=== PATIENT | male | born 2000 | race Caucasian/White ===

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

== ENCOUNTER 2022-10-14 22:28 | Observation (INO) | payer BC, OTHER ==
[2022-10-14 22:53] VITALS: TEMP 98.1
[2022-10-15] MEDS ORDERED: SODIUM CHLORIDE 0.9% 1,000 ML IV STA (00:11)
[2022-10-15 00:22] LABS: Basophils # (A) 0.1 k/uL (0-0.2); Basophils % (A) 1 %; Eosinophils # (A) 0.1 k/uL (0-0.7); Eosinophils % (A) 2 %; HCT 40.2 % (39.0-53.0); HGB 13.2 gm/dL (13.0-17.5); Lymphocytes # (A) 2.2 k/uL (1.0-4.8); Lymphocytes % (A) 31 %; MCH 27.9 pg (25.0-35.0); MCHC 32.9 g/dL (31.0-37.0); MCV 84.7 fL (80.0-100.0); Mean Platelet Volume 7.8; Monocytes # (A) 0.5 k/uL (0-1.0); Monocytes % (A) 8 %; Neutrophils # (A) 3.9 k/uL (1.3-7.7); Neutrophils % (A) 57 %; Platelet Count 259 k/uL (150-450); RBC 4.75 m/uL (4.30-5.90); RDW 13.7 % (11.5-15.5); WBC 6.9 k/uL (3.8-10.6)
[2022-10-15 00:28] LABS: ALT 23 U/L (4-49); AST 35 U/L (17-59); African American GFR (CKD) >90 (>60 ml/min/1.73 sqM); Albumin 4.3 g/dL (3.5-5.0); Alkaline Phosphatase 46 U/L (38-126); Anion Gap 6 mmol/L; Blood Urea Nitrogen 13 mg/dL (9-20); Calcium 9.2 mg/dL (8.4-10.2); Carbon Dioxide 28 mmol/L (22-30); Chloride 103 mmol/L (98-107); Glucose 92 mg/dL (74-99); Non-African American GFR(CKD) >90 (>60 ml/min/1.73 sqM); Potassium 4.6 mmol/L (3.5-5.1); Sodium 137 mmol/L (137-145); Total Bilirubin 0.5 mg/dL (0.2-1.3)
--- NOTE | 2022-10-15 00:28 | ED ---
Dizziness HPI - General Chief Complaint: Dizziness Stated Complaint: Dizzy,Tingles in hands and feet Time Seen by Provider: 10/14/22 23:26 Source: patient, RN notes reviewed Mode of arrival: ambulatory Limitations: no limitations - History of Present Illness Initial Comments: Patient is a pleasant 22-year-old male presenting to the emergency ro with concerns of dizziness with one syncopal episode earlier today along with persistent nausea, vomiting and diarrhea all ongoing within the last 24 hours. He also is complaining of generalized malaise, weakness and difficulty climbing upstairs and intermittent paresthesia to his upper extremities. He denies any numbness or tingling to his extremities at this time. He denies any lower extremity numbness or tingling. He was seen by his primary care provider earlier today regarding his symptoms and was referred to cardiology for further evaluation of a prolonged QT. He denies any history of cardiovascular problems including previous bradycardia and he is not taking any medications on a regular basis. He denies any abdominal pain, chest pain, blurred or double vision, dizziness when lying, headache, fevers or chills. He denies any significant past medical history. His mother reports that his grandfather did have a pacemaker placed when he was older but deny any cardiovascular problems at a young age that she or the patient is aware of. - Related Data Home Medications Medication Instructions Recorded Confirmed Ibuprofen [Motrin Ib] 400 mg PO Q6H PRN 11/28/18 11/28/18 Previous Rx's Medication Instructions Recorded methylPREDNISolone Dose Pack 4 mg PO DIRECTED #21 package 11/28/18 [Medrol Dose Pack] Allergies Allergy/AdvReac Type Severity Reaction Status Date / Time No Known Allergies Allergy Verified 10/14/22 22:52 Review of Systems ROS Statement: Those systems with pertinent positive or pertinent negative responses have been documented in the HPI. ROS Other: All systems not noted in ROS Statement are negative. Past Medical History Past Medical History: No Reported History History of Any Multi-Drug Resistant Organisms: None Reported Past Surgical History: No Surgical Hx Reported Past Psychological History: No Psychological Hx Reported Smoking Status: Vaper Past Alcohol Use History: Rare Past Drug Use History: None Reported General Exam Limitations: no limitations General appearance: alert, in no apparent distress Head exam: Present: atraumatic, normocephalic, normal inspection Eye exam: Present: normal appearance, PERRL, EOMI. Absent: scleral icterus, conjunctival injection, periorbital swelling ENT exam: Present: normal exam, mucous membranes moist Neck exam: Present: normal inspection, full ROM Respiratory exam: Present: normal lung sounds bilaterally. Absent: respiratory distress, wheezes, rales, rhonchi, stridor Cardiovascular Exam: Present: normal rhythm, bradycardia, normal heart sounds. Absent: systolic murmur, diastolic murmur, rubs, gallop, clicks GI/Abdominal exam: Present: soft, normal bowel sounds. Absent: distended, tende rness, guarding, rebound, rigid Extremities exam: Present: normal inspection. Absent: pedal edema, joint swelling Back exam: Present: normal inspection Neurological exam: Present: alert, oriented X3, CN II-XII intact Psychiatric exam: Present: normal affect, normal mood Course Vital Signs 10/14/22 10/15/22 22:49 00:24 Temperature 98.1 F Pulse Rate 46 L 52 L Respiratory 18 15 Rate Blood Pressure 131/83 130/95 O2 Sat by Pulse 99 100 Oximetry Medical Decision Making - Medical Decision Making Was pt. sent in by a medical professional or institution (, PA, SERVICES HOST, urgent care, hospital, or [facility]...) When possible be specific @ -No Did you speak to anyone other than the patient for history (EMS, parent, family, police, friend...)? 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 Did you review nursing and triage notes (agree or disagree)? Why? @ -I reviewed and agree with nursing and triage notes except patient denies any numbness or tingling in his lower extremities Were old charts reviewed (outside hosp., previous admission, EMS record, old EK G, old radiological studies, urgent care reports/EKG's, [facility] records)? Report findings @ -No old charts were reviewed Differential Diagnosis (chest pain, altered mental status, abdominal pain women, abdominal pain men, vaginal bleeding, weakness, fever, dyspnea, syncope, headache, dizziness, GI bleed, back pain, seizure, CVA, palpatations, mental health, musculoskeletal)? @ -Differential Dizziness: Benign paroxysmal positional Vertigo, Menieres disease, otitis media, acoustic neuroma, vertebrobasilar insufficiency, cerebellar stroke, encephalitis, hypovolemic, arrhythmia, coronary artery syndrome, anemia, this is not meant to be an all-inclusive list EKG interpreted by me (3pts min.). @ -Sinus bradycardia, ventricular rate 42 bpm, CA interval 148 ms, QRS duration 87 ms, QT/QTC 437/378 ms, PRT axes 58, 81, 65 X-rays interpreted by me (1pt min.). @ -Chest x-ray two-view: No consolidation, infiltrate, pleural effusion or cardiomegaly. CT interpreted by me (1pt min.). @ -None done U/S interpreted by me (1pt. min.). @ -None done What testing was considered but not performed or refused? (CT, X-rays, U/S, labs)? Why? @ -None What meds were considered but not given or refused? Why? @ -None Did you discuss the management of the patient with other professionals (professionals i.e. , PA, SERVICES HOST, lab, RT, psych nurse, social media sr strategy manager, plant guard, teacher, penal officer, case picker)? Give summary @ -Yes, spoke with Ca Laianey on-call for [facility] regarding patient's presentation and recommendation for observation stay and cardiac evaluation. She is accepting of admission denies any further orders at this time. Will place admission orders and consult cardiology. Was smoking cessation discussed for >3mins.? @ -No Was critical care preformed (if so, how long)? @ -No Were there social determinants of health that impacted care today? How? (Homelessness, low income, unemployed, alcoholism, drug addiction, transportation, low edu. Level, literacy, decrease access to med. care, longterm, rehab)? @ -No Was there de-escalation of care discussed even if they declined (Discuss DNR or withdrawal of care, Hospice)? DNR status @ -No What co-morbidities impacted this encounter? (DM, HTN, Smoking, COPD, CAD, Cancer, CVA, ARF, Chemo, Hep., AIDS, mental health diagnosis, sleep apnea, morbid obesity)? @ -None Was patient admitted / discharged? Hospital course, mention meds given and route, prescriptions, significant lab abnormalities, going to OR and other pertinent info. @ -22-year-old male presenting to the emergency room with complaints of dizziness with one episode of syncope, nausea, vomiting, diarrhea along with upper extremity paresthesia. Dizziness and syncope nausea vomiting and diarrhea all 1 day upper extremity paresthesia ongoing for approximately 2 weeks and intermittent none at this time. Exam reveals bradycardia. Will start workup for bradycardia with EKG, CBC, CMP, troponin, magnesium, urinalysis, urine drug screen, lactic acid, coags and viral swabbing. Will also obtain chest x-ray and give 1 L fluid bolus. CBC and CMP unremarkable. Troponin negative. Coags demonstrate slightly elevated INR at 1.2, PT normal. Viral swabbing for Covid, RSV and influenza are negative. Lactic acid normal. Chest x-ray without any acute cardiopulmonary process. EKG demonstrates sinus bradycardia. Urinalysis and urine drug screen still pending. Unclear underlying etiology for bradycardia however patient with symptomatic bradycardia advised recommend observation stay with cardiac evaluation. Patient is agreeable to this plan. Spoke with Ca Puente on-call for [facility] regarding patient presentation and recommendation of observation with cardiac consult. She is accepting of admission denies any further orders at this time. Will admit patient in stable condition for further evaluation and treatment of symptomatic bradycardia Undiagnosed new problem with uncertain prognosis? @ -No Drug Therapy requiring intensive monitoring for toxicity (Heparin, Nitro, Insulin, Cardizem)? @ -No Were any procedures done? @ -No Diagnosis/symptom? @ -Symptomatic bradycardia Acute, or Chronic, or Acute on Chronic? @ -Acute Uncomplicated (without systemic symptoms) or Complicated (systemic symptoms)? @ -Complicated Side effects of treatment? @ -No Exacerbation, Progression, or Severe Exacerbation? @ -No Poses a threat to life or bodily function? How? (Chest pain, USA, SD, pneumonia, PE, COPD, DKA, ARF, appy, cholecystitis, CVA, Diverticulitis, Homicidal, Suicidal, threat to staff... and all critical care pts) @ -Yes, bradycardia increased risk for ischemia and further cardiac arrhythmias. Case discussed with Dr. Sousa. - Lab Data Result diagrams: 10/14/22 23:54 10/14/22 23:54 Lab Results 10/14/22 10/14/22 10/14/22 Range/Units 23:54 23:54 23:54 WBC 6.9 (3.8-10.6) k/uL RBC 4.75 (4.30-5.90) m/uL Hgb 13.2 (13.0-17.5) gm/dL Hct 40.2 (39.0-53.0) % MCV 84.7 (80.0-100.0) fL MCH 27.9 (25.0-35.0) pg MCHC 32.9 (31.0-37.0) g/dL RDW 13.7 (11.5-15.5) % Plt Count 259 (150-450) k/uL MPV 7.8 Neutrophils % 57 % Lymphocytes % 31 % Monocytes % 8 % Eosinophils % 2 % Basophils % 1 % Neutrophils # 3.9 (1.3-7.7) k/uL Lymphocytes # 2.2 (1.0-4.8) k/uL Monocytes # 0.5 (0-1.0) k/uL Eosinophils # 0.1 (0-0.7) k/uL Basophils # 0.1 (0-0.2) k/uL PT 12.0 (9.0-12.0) sec INR 1.2 H (<1.2) Sodium 137 (137-145) mmol/L Potassium 4.6 (3.5-5.1) mmol/L Chloride 103 (98-107) mmol/L Carbon Dioxide 28 (22-30) mmol/L Anion Gap 6 mmol/L BUN 13 (9-20) mg/dL Creatinine 0.83 (0.66-1.25) mg/dL Est GFR (CKD-EPI)AfAm >90 (>60 ml/min/1.73 sqM) Est GFR (CKD-EPI)NonAf >90 (>60 ml/min/1.73 sqM) Glucose 92 (74-99) mg/dL Plasma Lactic Acid Carlo (0.7-2.0) mmol/L Calcium 9.2 (8.4-10.2) mg/dL Total Bilirubin 0.5 (0.2-1.3) mg/dL AST 35 (17-59) U/L ALT 23 (4-49) U/L Alkaline Phosphatase 46 (38-126) U/L Troponin I (0.000-0.034) ng/mL Total Protein 7.0 (6.3-8.2) g/dL Albumin 4.3 (3.5-5.0) g/dL Influenza Type A (PCR) (Not Detectd) Influenza Type B (PCR) (Not Detectd) RSV (PCR) (Not Detectd) SARS-CoV-2 (PCR) (Not Detectd) 10/14/22 10/14/22 10/15/22 Range/Units 23:54 23:54 00:24 WBC (3.8-10.6) k/uL RBC (4.30-5.90) m/uL Hgb (13.0-17.5) gm/dL Hct (39.0-53.0) % MCV (80.0-100.0) fL MCH (25.0-35.0) pg MCHC (31.0-37.0) g/dL RDW (11.5-15.5) % Plt Count (150-450) k/uL MPV Neutrophils % % Lymphocytes % % Monocytes % % Eosinophils % % Basophils % % Neutrophils # (1.3-7.7) k/uL Lymphocytes # (1.0-4.8) k/uL Monocytes # (0-1.0) k/uL Eosinophils # (0-0.7) k/uL Basophils # (0-0.2) k/uL PT (9.0-12.0) sec INR (<1.2) Sodium (137-145) mmol/L Potassium (3.5-5.1) mmol/L Chloride (98-107) mmol/L Carbon Dioxide (22-30) mmol/L Anion Gap mmol/L BUN (9-20) mg/dL Creatinine (0.66-1.25) mg/dL Est GFR (CKD-EPI)AfAm (>60 ml/min/1.73 sqM) Est GFR (CKD-EPI)NonAf (>60 ml/min/1.73 sqM) Glucose (74-99) mg/dL Plasma Lactic Acid Carlo 0.9 (0.7-2.0) mmol/L Calcium (8.4-10.2) mg/dL Total Bilirubin (0.2-1.3) mg/dL AST (17-59) U/L ALT (4-49) U/L Alkaline Phosphatase (38-126) U/L Troponin I <0.012 (0.000-0.034) ng/mL Total Protein (6.3-8.2) g/dL Albumin (3.5-5.0) g/dL Influenza Type A (PCR) Not Detected (Not Detectd) Influenza Type B (PCR) Not Detected (Not Detectd) RSV (PCR) Not Detected (Not Detectd) SARS-CoV-2 (PCR) Not Detected (Not Detectd) - Radiology Data Radiology results: report reviewed, image reviewed Disposition Clinical Impression: Symptomatic sinus bradycardia Disposition: ADMITTED IP TO THIS [facility] Condition: Stable Referrals: None,Stated [Primary Care Provider] - 1-2 days Time of Disposition: 01:43
[2022-10-15 00:48] LABS: INR 1.2 (<1.2)
[2022-10-15] MEDS ORDERED: NALOXONE 0.4 MG/ML 1 ML VIAL IV PRN (01:42)
--- NOTE | 2022-10-15 02:12 | XR ---
EXAM: XR Chest, 2 Views CLINICAL HISTORY: ITS.REASON XR Reason: bradycardia TECHNIQUE: Frontal and lateral views of the chest. COMPARISON: No relevant prior studies available. FINDINGS: Lungs: No consolidation or mass. Pleural space: No effusion. Heart: No cardiomegaly. Bones/joints: No acute findings. IMPRESSION: No acute cardiopulmonary process.
[2022-10-15] MEDS ORDERED: SODIUM CHLORIDE 0.9% 1,000 ML IV SCH (09:15)
[2022-10-15 10:07] LABS: Appearance,Urine Clear (Clear); Bilirubin,Urine Negative (Negative); Blood,Urine Negative (Negative); Color,Urine Yellow; Glucose,Urine (UA) Negative (Negative); Ketones,Urine Negative (Negative); Leukocyte Esterase,Urine Moderate (Negative); Mucus,Urine Few /hpf; Nitrite,Urine Negative (Negative); Protein,Urine Negative (Negative); RBC,Urine 3 /hpf (0-5); Urobilinogen,Urine <2.0 mg/dL (<2.0); WBC,Urine 36 /hpf (0-5)
[2022-10-15 10:08] LABS: Amphetamine Screen,Urine Not Detected (NotDetected); Barbiturate Screen,Urine Not Detected (NotDetected); Benzodiazepines Screen,Urine Not Detected (NotDetected); Cocaine Screen,Urine Not Detected (NotDetected); Methadone Screen, Urine Not Detected (NotDetected); Opiate Screen,Urine Not Detected (NotDetected); Oxycodone Screen, Urine Not Detected (NotDetected); Phencyclidine Screen,Urine Not Detected (NotDetected); Tricyclic Antidepressant,Urine Not Detected (NotDetected); Urn Cannabinoid Scrn Detected (NotDetected)
--- NOTE | 2022-10-15 11:32 | P.CRDCN ---
History of Present Illness Consult date: 10/15/22 Reason for Consult (text): Bradycardia History of present illness: History of present illness: This is a 22-year-old male with no previous cardiac history. 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 He states he was feeling okay prior to this episode. The time he got home he had another episode of vomiting in the afternoon after he ate. He should also developed lightheadedness and his mom states he was losing his footing on the stairs, starting to fall and catch himself. He has had no injuries. He went to the urgent care and he was told that his heart rate was low and was referred to Dr. Schmidt. Patient is normally active, plays softball. Patient states he has also had trouble with his hands being numb for the last couple of weeks. He decided to come in yesterday because he had numbness of his hands but also of his feet which was a new symptom. He denies history of smoking, occasional alcohol use, no marijuana or illicit drug use. Patient is seen today in the emergency center. He is status post 1 L of IV fluids. EKG sinus rhythm bradycardic, no ST changes Chest x-ray: No acute findings CBC CMP unremarkable. Troponin negative 1. Potassium 4.6, magnesium 2.0. INR 1.2. Influenza A, influenza B, RSV, Covid 19 undetected. Urine drug screen positive for marijuana. Urine drug screen leukoesterase moderate, wbc's 36. Home cardiac medications: None Review Of Systems: At the time of my evaluation: Constitutional: No fever, no chills. No weakness, fatigue or lethargy. EENT: No headache. No dizziness. Lungs: No shortness of breath, cough, no sputum production. No wheezing. Cardiovascular: No chest pain, no lower extremity edema. No palpitations. No paroxysmal nocturnal dyspnea. No orthopnea. No lightheadedness or dizziness. No syncopal episodes. Abdominal: No abdominal pain. No nausea, vomiting. No diarrhea. No constipation. No bloody or tarry stools. Genitourinary: No dysuria.. No urinary retention. Musculoskeletal: No myalgias. No muscle weakness, no frequent falls. No back pain. No neck pain. Integumentary: No wounds. No rash. No unusual bruising. Neurologic: No aphasia. No facial droop. No change in mentation. No head injury. No headache. Physical examination: Gen: This is a 22-year-old male. He is resting on ER stretcher and appears to be comfortable and in no acute distress. Mother is at bedside. VS: reviewed HEENT: Head is atraumatic, normocephalic. Pupils equal, round. Sclerae is anicteric. NECK: Supple. No JVD. LUNGS: Clear to auscultation. No wheezes or rhonchi. No intercostal retractions. HEART: Regular rate and rhythm. No murmur. ABDOMEN: Soft No tenderness. EXTREMITIES: No pedal edema. No calf tenderness. NEUROLOGICAL: Patient is awake, alert and oriented x3. Assessment: Asymptomatic bradycardia Viral syndrome with vomiting Plan: Start patient on IV fluids 0.9 normal saline at 100 mL per hour for 6 hours Obtain TSH, free T4 Obtain 2-D echocardiogram and Doppler study to assess cardiac structure and function Patient is to eat, ambulate and if doing well in the afternoon, he is cleared for discharge home. He may follow-up in the office with Dr. RICH Apodaca in one to 2 weeks. Thank you kindly for this consultation. Nurse practitioner note has been reviewed, I agree with documented findings and plan of care. Patient was seen and examined. Past Medical History Past Medical History: No Reported History History of Any Multi-Drug Resistant Organisms: None Reported Past Surgical History: No Surgical Hx Reported Past Psychological History: No Psychological Hx Reported Smoking Status: Vaper Past Alcohol Use History: Rare Past Drug Use History: None Reported Medications and Allergies Home Medications Medication Instructions Recorded Confirmed Type No Known Home Medications 10/15/22 10/15/22 History Allergies Allergy/AdvReac Type Severity Reaction Status Date / Time No Known Allergies Allergy Verified 10/15/22 08:35 Physical Exam Vitals: Vital Signs Temp Pulse Resp BP Pulse Ox 10/15/22 09:00 58 L 21 114/80 100 10/15/22 08:30 51 L 17 114/80 100 10/15/22 08:00 40 L 17 123/89 10/15/22 07:30 37 L 12 123/89 10/15/22 07:24 35 L 18 123/89 98 10/15/22 07:00 49 L 0 L 118/82 06/30/23 06:32 40 L 15 116/82 97 10/15/22 06:30 38 L 15 116/69 10/15/22 06:00 37 L 15 119/63 98 10/15/22 05:30 37 L 0 L 99 10/15/22 05:00 36 L 4 L 132/75 99 10/15/22 04:30 36 L 0 L 107/76 99 10/15/22 04:00 35 L 5 L 112/88 98 10/15/22 03:30 38 L 13 107/71 98 10/15/22 03:00 35 L 13 58/32 98 10/15/22 02:30 40 L 11 L 121/80 100 10/15/22 02:00 40 L 6 L 130/78 99 10/15/22 01:30 37 L 5 L 127/94 100 10/15/22 01:00 39 L 23 125/85 100 10/15/22 00:30 42 L 9 L 130/95 100 10/15/22 00:24 52 L 44 H 130/95 100 10/14/22 22:49 98.1 F 46 L 18 131/83 99 Intake and Output 10/14/22 10/15/22 10/15/22 22:59 06:59 14:59 Other: Weight 71.214 kg Results 10/14/22 23:54 10/14/22 23:54 Cardiac Enzymes 10/14/22 10/14/22 Range/Units 23:54 23:54 AST 35 (17-59) U/L Troponin I <0.012 (0.000-0.034) ng/mL Coagulation 10/14/22 Range/Units 23:54 PT 12.0 (9.0-12.0) sec CBC 10/14/22 Range/Units 23:54 WBC 6.9 (3.8-10.6) k/uL RBC 4.75 (4.30-5.90) m/uL Hgb 13.2 (13.0-17.5) gm/dL Hct 40.2 (39.0-53.0) % Plt Count 259 (150-450) k/uL Comprehensive Metabolic Panel 10/14/22 Range/Units 23:54 Sodium 137 (137-145) mmol/L Potassium 4.6 (3.5-5.1) mmol/L Chloride 103 (98-107) mmol/L Carbon Dioxide 28 (22-30) mmol/L BUN 13 (9-20) mg/dL Creatinine 0.83 (0.66-1.25) mg/dL Glucose 92 (74-99) mg/dL Calcium 9.2 (8.4-10.2) mg/dL AST 35 (17-59) U/L ALT 23 (4-49) U/L Alkaline Phosphatase 46 (38-126) U/L Total Protein 7.0 (6.3-8.2) g/dL Albumin 4.3 (3.5-5.0) g/dL Current Medications Generic Name Dose Route Start Last Admin Trade Name Freq PRN Reason Stop Dose Admin Sodium Chloride 1,000 mls @ 100 mls/hr 10/15/22 09:15 Saline 0.9% IV 10/15/22 15:16 .Q10H REJI Naloxone HCl 0.2 mg 10/15/22 01:42 Naloxone 0.4 Mg/Ml 1 Ml Vial IV Q2M PRN Opioid Reversal Intake and Output 10/14/22 10/15/22 10/15/22 22:59 06:59 14:59 Other: Weight 71.214 kg 10/14/22 23:54 10/14/22 23:54
--- NOTE | 2022-10-15 13:10 | P.HPIM ---
History of Present Illness 22-year-old male was sent to the hospital because of bradycardia with heart rate going to as low as 34. Patient has sinus bradycardia although patient is a healthy and physically fit male. Patient was having episodes of nausea vomiting which resolved at this time and patient was having lightheadedness because of that nausea vomiting. Patient went to the urgent care where he is found to have low heart rate which was believed to be contributing to his symptoms because of which patient was asked to go to ER. EKG did not show any significant abnormality on the left lites are within normal limits REVIEW OF SYSTEMS: CONSTITUTIONAL: No fever, no malaise, no fatigue. HEENT: No recent visual problems or hearing problems. Denied any sore throat. CARDIOVASCULAR: No chest pain, orthopnea, PND, no palpitations, no syncope. PULMONARY: No shortness of breath, no cough, no hemoptysis. GASTROINTESTINAL: No diarrhea, no nausea, no vomiting, no abdominal pain. NEUROLOGICAL: No headaches, no weakness, no numbness. HEMATOLOGICAL: Denies any bleeding or petechiae. GENITOURINARY: Denies any burning micturition, frequency, or urgency. MUSCULOSKELETAL/RHEUMATOLOGICAL: Denies any joint pain, swelling, or any muscle pain. ENDOCRINE: Denies any polyuria or polydipsia. The rest of the 14-point review of systems is negative. PHYSICAL EXAMINATION: GENERAL: The patient is alert and oriented x3, not in any acute distress. Well developed, well nourished. HEENT: Pupils are round and equally reacting to light. EOMI. No scleral icterus. No conjunctival pallor. Normocephalic, atraumatic. No pharyngeal erythema. No thyromegaly. CARDIOVASCULAR: S1 and S2 present. No murmurs, rubs, or gallops. PULMONARY: Chest is clear to auscultation, no wheezing or crackles. ABDOMEN: Soft, nontender, nondistended, normoactive bowel sounds. No palpable organomegaly. MUSCULOSKELETAL: No joint swelling or deformity. EXTREMITIES: No cyanosis, clubbing, or pedal edema. NEUROLOGICAL: Gross neurological examination did not reveal any focal deficits. SKIN: No rashes. Assessment and plan -Dizziness lightheadedness is most probably secondary to mild dehydration from nausea vomiting. Urine drug screen is also positive for marijuana. Low possibility is sinus bradycardia is contributing to his dizziness because of which she echocardiogram are was obtained and patient will follow-up with the cardiology as an outpatient. -Sinus bradycardia: Most probably not contributing to his symptoms -Urine drug screen positive for marijuana: Counseling was provided -Possible viral gastroenteritis which resolved Patient will be discharged today to follow up with cardiology as an outpatient Past Medical History Past Medical History: No Reported History History of Any Multi-Drug Resistant Organisms: None Reported Past Surgical History: No Surgical Hx Reported Past Psychological History: No Psychological Hx Reported Smoking Status: Vaper Past Alcohol Use History: Rare Past Drug Use History: None Reported Medications and Allergies Home Medications Medication Instructions Recorded Confirmed Type No Known Home Medications 10/15/22 10/15/22 History Allergies Allergy/AdvReac Type Severity Reaction Status Date / Time No Known Allergies Allergy Verified 10/15/22 08:35 Physical Exam Vitals: Vital Signs Temp Pulse Resp BP Pulse Ox 10/15/22 10:30 42 L 0 L 115/72 99 10/15/22 10:00 42 L 18 128/76 100 10/15/22 09:00 58 L 21 114/80 100 10/15/22 08:30 51 L 17 114/80 100 10/15/22 08:00 40 L 17 123/89 10/15/22 07:30 37 L 12 123/89 10/15/22 07:24 35 L 18 123/89 98 10/15/22 07:00 49 L 0 L 118/82 10/15/22 06:32 40 L 15 116/82 97 10/15/22 06:30 38 L 15 116/69 10/15/22 06:00 37 L 15 119/63 98 10/15/22 05:30 37 L 0 L 99 10/15/22 05:00 36 L 4 L 132/75 99 10/15/22 04:30 36 L 0 L 107/76 99 10/15/22 04:00 35 L 5 L 112/88 98 10/15/22 03:30 38 L 13 107/71 98 10/15/22 03:00 35 L 13 58/32 98 10/15/22 02:30 40 L 11 L 121/80 100 10/15/22 02:00 40 L 6 L 130/78 99 10/15/22 01:30 37 L 5 L 127/94 100 10/15/22 01:00 39 L 23 125/85 100 10/15/22 00:30 42 L 9 L 130/95 100 10/15/22 00:24 52 L 44 H 130/95 100 10/14/22 22:49 98.1 F 46 L 18 131/83 99 Intake and Output 10/14/22 10/15/22 10/15/22 22:59 06:59 14:59 Other: Weight 71.214 kg Results CBC & Chem 7: 10/14/22 23:54 10/14/22 23:54 Labs: Abnormal Lab Results - Last 24 Hours (Table) 10/14/22 10/15/22 Range/Units 23:54 06:32 INR 1.2 H (<1.2) Ur Leukocyte Esterase Moderate H (Negative) Urine WBC 36 H (0-5) /hpf Urine Mucus Few H (None) /hpf U Marijuana (THC) Screen Detected H (NotDetected)
[2022-10-15 13:20] VITALS: RESP 18
[2022-10-15 17:40] VITALS: BP 117/72
[2022-10-15 19:22] VITALS: PULSE 60
--- NOTE | 2022-10-16 10:35 | CA ---
Transthoracic Echo Report Name: Jonathan Swan Age: 22 Gender: M : 2000 Exam Date: 10/15/2022 09:52 Exam Location: [facility] Ht (in): 69 Wt (lb): 157 Ordering Physician: Preethi Welch Attending/Referring Phys: [id number], Yuri Branch Operations Specialist Vanda Cardoza RDCS Procedure CPT: Indications: LVF Cardiac Hx: Technical Quality: Fair Contrast 1: Total Dose (mL): Contrast 2: Total Dose (mL): MEASUREMENTS (Male / Female) Normal Values 2D ECHO LV Diastolic Diameter PLAX 4.9 cm 4.2 - 5.9 / 3.9 - 5.3 cm LV Systolic Diameter PLAX 3.8 cm IVS Diastolic Thickness 0.9 cm 0.6 - 1.0 / 0.6 - 0.9 cm LVPW Diastolic Thickness 1.0 cm 0.6 - 1.0 / 0.6 - 0.9 cm LV Relative Wall Thickness 0.4 RV Internal Dim ED PLAX 2.9 cm LA Volume 68.1 cm??? 18 - 58 / 22 - 52 cm??? M-MODE Aortic Root Diameter MM 2.7 cm LA Systolic Diameter MM 3.5 cm LA Ao Ratio MM 1.3 AV Cusp Separation MM 1.9 cm DOPPLER AV Peak Velocity 119.4 cm/s AV Peak Gradient 5.7 mmHg AV Mean Velocity 92.1 cm/s AV Mean Gradient 3.7 mmHg AV Velocity Time Integral 26.6 cm LVOT Peak Velocity 110.1 cm/s LVOT Peak Gradient 4.9 mmHg LVOT Velocity Time Integral 25.5 cm MV Area PHT 2.2 cm??? Mitral E Point Velocity 84.0 cm/s Mitral A Point Velocity 27.0 cm/s Mitral E to A Ratio 3.1 MV Deceleration Time 351.1 ms MV E' Velocity 15.7 cm/s Mitral E to MV E' Ratio 5.3 TR Peak Velocity 192.3 cm/s TR Peak Gradient 14.8 mmHg Right Ventricular Systolic Press 19.8 mmHg FINDINGS Left Ventricle Left ventricular cavity size normal. Left ventricular wall thickness normal. Normal left ventricular systolic function with no obvious regional wall motion abnormalities. Left ventricular ejection fraction is estimated at 50-55 %. Right Ventricle Normal right ventricular size and function. Right ventricular systolic pressure within normal limits. Right Atrium Normal right atrial size. Left Atrium Mildly increased left atrial volume. Mildly increased left atrial area. Mitral Valve Structurally normal mitral valve. Mild mitral regurgitation. Aortic Valve Trileaflet aortic valve. No aortic valve stenosis or regurgitation. Tricuspid Valve Structurally normal tricuspid valve. Mild tricuspid regurgitation. Pulmonic Valve No pulmonic regurgitation. Pericardium No pericardial effusion. Aorta Normal size aortic root and proximal ascending aorta. CONCLUSIONS Normal LV systolic function with an ejection fraction of 50-55% Mild left atrial enlargement Bradycardia noted Previewed by: Dr. Angel Cole MD (Electronically Signed) Final Date: 16 October 2022 10:34
== END 2022-10-15 19:21 | disposition home or self-care (01) ==
LOC: EC 22:28 → 3SCARD 10-15 01:43 → 6NMEDSUR 10-15 02:39
PROVIDERS: ADMIT Hospitalist; ATTEND Hospitalist
DX: B34.9 Viral infection, unspecified (principal); E86.0 Dehydration; R00.1 Bradycardia, unspecified; R20.2 Paresthesia of skin; R19.7 Diarrhea, unspecified; Z20.822 Contact with and (suspected) exposure to COVID-19
CPT/HCPCS: 96360; 96361; 99285; 36415; 93005; 93306; 80053; 84443; 83605; 83735; 84484; 85025; 85610; 81001; 80306; 87636; 71046; G0378 ×2